=== PATIENT | female | born 1990 | race Caucasian/White ===

== ENCOUNTER 2019-01-10 20:09 | Emergency (ER) | payer MEDICAID ==
--- NOTE | 2019-01-10 20:28 | EDM.PDOC ---
ED HPI GENERAL MEDICAL PROBLEM - General Chief Complaint: Lower Extremity Injury/Pain Stated Complaint: LT LEG HURTS Time Seen by Provider: 01/10/19 20:14 - History of Present Illness INITIAL COMMENTS - FREE TEXT/NARRATIVE: HISTORY AND PHYSICAL: History of present illness: Patient is a 25-year-old white female history of Down syndrome presents with a concern of left lower extremity pain seems to be more in her thigh per patient and sister with no trauma no fever chills nausea vomiting other complaints she is no history DVT she is on contraception. Review of systems: As per history of present illness and below otherwise all systems reviewed and negative. Past medical history: As per history of present illness and as reviewed below otherwise noncontributory. Surgical history: As per history of present illness and as reviewed below otherwise noncontributory. Social history: No reported history of drug or alcohol abuse. Family history: As per history of present illness and as reviewed below otherwise noncontributory. Physical exam: HEENT: Atraumatic, normocephalic, pupils reactive, negative for conjunctival pallor or scleral icterus, mucous membranes moist, throat clear, neck supple, nontender, trachea midline. Lungs: Clear to auscultation, breath sounds equal bilaterally, chest nontender. Heart: S1S2, regular, negative for clicks, rubs, or JVD. Abdomen: Soft, nondistended, nontender. Negative for masses or hepatosplenomegaly. Negative for costovertebral tenderness. Pelvis: Stable nontender. Genitourinary: Deferred. Rectal: Deferred. Extremities: Atraumatic, negative for cords or calf pain. Neurovascular unremarkable. Neuro: Awake, alert, oriented. Cranial nerves II through XII unremarkable. Cerebellum unremarkable. Motor and sensory unremarkable throughout. Exam nonfocal. Diagnostics: X-ray left femur venous Doppler left lower extremity Therapeutics: None Impression: #1 medical screening exam #2 left lower extremity pain etiology to be determined Definitive disposition and diagnosis as appropriate pending reevaluation and review of above. Left Thigh Pain Score (Numeric/FACES): 6 - Related Data Allergies Allergy/AdvReac Type Severity Reaction Status Date / Time No Known Allergies Allergy Verified 01/10/19 20:17 Home Meds: Home Meds Levothyroxine 25 mcg PO DAILY 01/10/19 [History] Oxybutynin 25 mg PO DAILY 01/10/19 [History] medroxyPROGESTERone Acetate [Depo-Provera] 150 mg INJECT ASDIRECTED 01/10/19 [ History] Past Medical History Cardiovascular History: Reports: Other (See Below) Other Cardiovascular History: open heart surgery Other Neuro History: Down syndrome Endocrine/Metabolic History: Reports: Hypothyroidism - Infectious Disease History Infectious Disease History: Reports: None Social & Family History - Family History Family Medical History: Noncontributory - Tobacco Use Smoking Status *Q: Never Smoker Second Hand Smoke Exposure: No - Caffeine Use Caffeine Use: Reports: Soda - Recreational Drug Use Recreational Drug Use: No Review of Systems - Review of Systems Review Of Systems: ROS reveals no pertinent complaints other than HPI. ED EXAM, GENERAL - Physical Exam Exam: See Below (The dictation) Course - Vital Signs Last Recorded V/S: Last Vital Signs Temp 36.6 C 01/10/19 20:17 Pulse 68 01/10/19 21:09 Resp 20 01/10/19 21:09 BP 105/58 L 01/10/19 21:09 Pulse Ox 97 01/10/19 21:09 Departure - Departure Time of Disposition: 22:48 Disposition: Home, Self-Care 01 Condition: Good Clinical Impression: Lower extremity pain - Discharge Information Referrals: PCP,None [Primary Care Provider] - Forms: ED Department Discharge Additional Instructions: The following information is given to patients seen in the emergency department who are being discharged to home. This information is to outline your options for follow-up care. We provide all patients seen in our emergency department with a follow-up referral. The need for follow-up, as well as the timing and circumstances, are variable depending upon the specifics of your emergency department visit. If you don't have a primary care physician on staff, we will provide you with a referral. We always advise you to contact your personal physician following an emergency department visit to inform them of the circumstance of the visit and for follow-up with them and/or the need for any referrals to a consulting specialist. The emergency department will also refer you to a specialist when appropriate. This referral assures that you have the opportunity for followup care with a specialist. All of these measure are taken in an effort to provide you with optimal care, which includes your followup. Under all circumstances we always encourage you to contact your private physician who remains a resource for coordinating your care. When calling for followup care, please make the office aware that this follow-up is from your recent emergency room visit. If for any reason you are refused follow-up, please contact the [facility] emergency department at and asked to speak to the emergency department charge nurse. [facility] [address], [address] [place] [address] Follow-up primary medical doctor and/or orthopedic clinic above as needed as discussed Motrin/Tylenol as directed return as needed as discussed
--- NOTE | 2019-01-10 22:02 | CR ---
Indication: Pain, limping Technique: Frontal and lateral views left femur Comparison: None Findings: Bones: Alignment is normal. No fractures or bone lesions. Joint spaces: Unremarkable. Soft tissues: Unremarkable. Impression: Negative. Dictated by Keely Isbell MD @ Jan 10 2019 10:00PM Signed by Dr. Keely Isbell @ Jan 10 2019 10:01PM
--- NOTE | 2019-01-10 22:45 | US ---
INDICATION: Leg pain and swelling TECHNIQUE: Ultrasound venous duplex lower left extremity. Compression venous exam was performed using arec-scale, color Doppler, and spectral Doppler analysis. COMPARISON: None. FINDINGS: Sonographic imaging demonstrates the left common femoral, deep femoral, superficial femoral, popliteal, posterior tibial and greater saphenous veins to be fully compressible with normal color Doppler blood flow. IMPRESSION: Normal left lower extremity venous ultrasound, no sign of deep venous thrombosis. Dictated by Jose Molina MD @ Jan 10 2019 10:41PM Signed by Dr. Jose Molina @ Jan 10 2019 10:43PM
== END 2019-01-10 22:55 | disposition home or self-care (01) ==
LOC: EDBD 20:09 → MW.ED 20:09
DX: M79.662 Pain in left lower leg (principal); E03.9 Hypothyroidism, unspecified; Z79.899 Other long term (current) drug therapy
CPT/HCPCS: 73552-26-LT; 73552-LT; 93971-26-LT; 93971-LT; 99282; 99284-25